=== PATIENT | female | born 1990 | race Caucasian/White ===

== ENCOUNTER 2018-03-14 09:36 | Emergency (ER) | payer SELFPAY ==
[2018-03-14 10:08] LABS: ADD MAN DIFF? NO
[2018-03-14] MEDS: fentaNYL PF VIAL 100 MCG/2 ML VIAL IV (10:09)
[2018-03-14 10:13] LABS: BASO # 0.1 x10^3/uL (0.0-0.2); BASO % 1 % (0-3); EOS # 0.2 x10^3/uL (0.0-0.7); EOS % 2 % (0-3); HEMATOCRIT 37.7 % (36.0-47.0); HEMOGLOBIN 13.2 g/dL (12.0-15.5); LYMPH # 1.2 x10^3/uL (1.0-4.8); LYMPH % 9 % (24-48); MEAN CORPUSCULAR HEMOGLOBIN 30 pg (25-35); MEAN CORPUSCULAR HGB CONC 35 g/dL (31-37); MEAN CORPUSCULAR VOLUME 86 fL (79-100); MONO # 0.9 x10^3/uL (0.0-1.1); MONO % 7 % (0-9); NEUT # 10.8 x10^3uL (1.8-7.7); NEUT % 82 % (31-73); PLATELET COUNT 306 x10^3/uL (140-400); RED CELL DISTRIBUTION WIDTH 13.3 % (11.5-14.5); WHITE BLOOD COUNT 13.2 x10^3/uL (4.0-11.0)
[2018-03-14] MEDS: IV NORMAL SALINE 1000ML BAG 1,000 ML IV (10:15)
[2018-03-14 10:18] LABS: ANION GAP 14 (6-14); BLOOD UREA NITROGEN 5 mg/dL (7-20); BUN/CREATININE RATIO 6 (6-20); CALCIUM 9.9 mg/dL (8.5-10.1); CARBON DIOXIDE 22 mmol/L (21-32); CHLORIDE 101 mmol/L (98-107); CREATININE 0.8 mg/dL (0.6-1.0); GFR 87.4; GLUCOSE 91 mg/dL (70-99); POTASSIUM 4.2 mmol/L (3.5-5.1); SODIUM 137 mmol/L (136-145)
[2018-03-14 10:24] LABS: ALBUMIN 4.6 g/dL (3.4-5.0); ALBUMIN/GLOBULIN RATIO 1.2 (1.0-1.7); ALK PHOS 83 U/L (46-116); ALT (SGPT) 16 U/L (14-59); AST (SGOT) 11 U/L (15-37); TOTAL BILIRUBIN 0.6 mg/dL (0.2-1.0); TOTAL PROTEIN 8.4 g/dL (6.4-8.2)
[2018-03-14] MEDS: MORPHINE SULFATE 10 MG/ML VIAL. IV (10:35)
[2018-03-14] MEDS ORDERED: IOHEXOL 240 MG/ML 50ML VIAL. PO (11:15)
[2018-03-14] MEDS ORDERED: IOHEXOL 300 MG/ML 100ML VIAL. IV (11:15)
[2018-03-14] MEDS ORDERED: CONTRAST GIVEN. MC (11:30)
[2018-03-14 11:32] LABS: BILIRUBIN,URINE NEGATIVE (NEG); CLARITY,URINE CLEAR; COLOR,URINE YELLOW; GLUCOSE,URINE NEGATIVE (NEG); NITRITE,URINE NEGATIVE (NEG); PH,URINE 8.5; PROTEIN,URINE NEGATIVE (NEG-TRACE); UROBILINOGEN,URINE 0.2 mg/dL (0.2 mg/dL)
[2018-03-14 11:50] LABS: BACTERIA,URINE 0 /HPF (0-FEW); RBC,URINE 0 /HPF (0-2); SQUAMOUS EPITHELIAL CELL,UR FEW /LPF; WBC,URINE 0 /HPF (0-4)
[2018-03-14] MEDS ORDERED: fentaNYL PF VIAL 100 MCG/2 ML VIAL IV (13:00)
[2018-03-14] MEDS: AZITHROMYCIN 250 MG TABLET. PO (14:16)
[2018-03-14] MEDS: HYDROcodone/APAP 5/325MG 1 TAB TABLET PO (14:16)
[2018-03-14] MEDS: ONDANSETRON PF 4 MG/2 ML VIAL. IV (14:20)
[2018-03-15] MEDS ORDERED: cefTRIAXone IV Push 1 GM VIAL. IVP (14:00)
[2018-03-16 15:27] LABS: CHLAMYDIA PROBE Negative (Negative); GC PROBE Negative (Negative)
== END 2018-03-14 15:04 | disposition home or self-care (01) ==
LOC: ER 15:04
DX: N72 Inflammatory disease of cervix uteri (principal); N76.0 Acute vaginitis; B96.89 Other specified bacterial agents as the cause of diseases classified elsewhere; Z88.1 Allergy status to other antibiotic agents
CPT/HCPCS: 36415; 74177; 76830; 76856; 80053; 81001; 85025; 87491; 87591; 93005; 96365; 96374; 96375; 99285-25; J0690; J2060; J2270; J2405; J3010; J7030; Q0111; Q0144